=== PATIENT | male | born 2000 | race American Indian/Alaskan Native ===

== ENCOUNTER 2021-05-15 23:38 | Emergency (ER) | payer BC ==
[2021-05-15] MEDS ORDERED: SODIUM CHLORIDE 0.9% 1000 ML 1,000 ML IV ONE (23:44)
[2021-05-15] MEDS ORDERED: TETANUS,DIPH,PERTUSS(ACELL) VACCINE 0.5 ML SYRINGE IM ONE (23:47)
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
[2021-05-15] MEDS ORDERED: ONDANSETRON 4 MG/2 ML INJ IV ONE (23:54)
[2021-05-15] MEDS ORDERED: HYDROmorphone 1 MG/1 ML INJ IV ONE (23:54)
[2021-05-15 23:56] LABS: Basophils # (Auto) 0.1 K/mm3 (0.0-0.1); Basophils % (Auto) 0.5 % (0.0-1.8); Eosinophils % (Auto) 0.2 % (0.0-4.3); Hemoglobin 14.1 gm/dl (11.8-15.2); Lymphocytes # (Auto) 2.4 K/mm3 (1.2-5.4); Lymphocytes % (Auto) 15.5 % (13.4-35.0); Mean Corpuscular HGB Conc 34 % (32-34); Mean Corpuscular Volume 88 fl (84-94); Monocytes # (Auto) 1.1 K/mm3 (0.0-0.8); Monocytes % (Auto) 7.2 % (0.0-7.3); Platelet Count 202 K/mm3 (140-440); Red Blood Count 4.67 M/mm3 (3.65-5.03)
[2021-05-16] MEDS ORDERED: HYDROmorphone 1 MG/1 ML INJ IV ONE (00:01)
[2021-05-16 00:13] LABS: Alanine Aminotransferase 15 units/L (7-56); Albumin 3.9 g/dL (3.9-5); BUN/Creatinine Ratio 8; Blood Urea Nitrogen 10 mg/dL (9-20); Calcium 8.8 mg/dL (8.4-10.2); Hemolysis Index 11
[2021-05-16] MEDS ORDERED: ceFAZolin/NS 1 GM/50 ML 1 GM/50 ML BAG IV ONE (01:00)
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
[2021-05-16 01:43] VITALS: BP 134/71
== END 2021-05-16 02:04 | disposition home or self-care (01) ==
LOC: ED 23:38
DX: S71.132A Puncture wound without foreign body, left thigh, initial encounter (principal); M79.652 Pain in left thigh; F17.200 Nicotine dependence, unspecified, uncomplicated; F12.90 Cannabis use, unspecified, uncomplicated; Z79.899 Other long term (current) drug therapy; W34.00XA Accidental discharge from unspecified firearms or gun, initial encounter; Y93.89 Activity, other specified; Y92.89 Other specified places as the place of occurrence of the external cause; Y99.8 Other external cause status
CPT/HCPCS: 36415; 73552; 80053; 85025; 86850; 86900; 86901; 90471; 90715; 96361; 96365; 96375; 96376; 99284; J0690; J1170; J2405; J7030